=== PATIENT | female | born 1985 | race Caucasian/White ===

== ENCOUNTER 2019-10-12 21:14 | Emergency (ER) | payer OTHER ==
[~2019-10-12] VITALS: Ht 162.6 cm; Wt 72.6 kg
[2019-10-12 21:20] VITALS: BP 122/62; Ht 162.6 cm; Wt 72.6 kg
== END 2019-10-13 00:22 | disposition home or self-care (01) ==
LOC: ED 21:14
DX: S61.022A Laceration with foreign body of left thumb without damage to nail, initial encounter (principal); W18.30XA Fall on same level, unspecified, initial encounter; Y93.89 Activity, other specified; Y92.89 Other specified places as the place of occurrence of the external cause; Y99.8 Other external cause status
CPT/HCPCS: J2001